=== PATIENT | female | born 1940 | race Hispanic/Latino ===

== ENCOUNTER 2017-11-02 16:43 | Emergency (ER) | payer MEDICARE, OTHER ==
[2017-11-02 16:49] VITALS: BMI 24.3
[2017-11-02 16:59] VITALS: O2SAT 99
[2017-11-02] MEDS ORDERED: Pantoprazole 40 MG in Sodium Chloride 0.9% 100 ML IV STA (17:03)
[2017-11-02] MEDS ORDERED: Sodium Chloride 0.9% 1,000 ML IV STA (17:04)
--- NOTE | 2017-11-02 17:07 | ED PDOC ---
Arrival/HPI - General Chief Complaint: GI Problem Time Seen by Provider: 11/02/17 16:52 - History of Present Illness Narrative History of Present Illness (Text): 11/02/17 17:04 76 year old female, whose history includes hernia surgery long ago, presents to the Emergency department complaining of diarrhea, abdominal pain, and weakness for 2 days. Patient denies any fever, chills, chest pain, shortness of breath, nausea, vomiting, urinary symptoms, back pain, neck pain, headache, dizziness, or any other complaints. Time/Duration: < week (2 days) Symptom Onset: Gradual Symptom Course: Unchanged Context: Home Past Medical History - Travel History Have you recently traveled outside [place] w/in the past 3 mons?: Yes - Infectious Disease Hx of Infectious Diseases: None - Psychiatric Hx Substance Use: No - Surgical History Hx Cholecystectomy: Yes - Anesthesia Hx Anesthesia: Yes Hx Anesthesia Reactions: No Hx Malignant Hyperthermia: No Family/Social History - Physician Review Nursing Documentation Reviewed: Yes Family/Social History: Unknown Family HX Smoking Status: Never Smoked Hx Alcohol Use: No Hx Substance Use: No Allergies/Home Meds Allergies/Adverse Reactions: Allergies No Known Allergies Allergy (Verified 11/02/17 16:49) Review of Systems - Physician Review All systems were reviewed & negative as marked: Yes - Review of Systems Constitutional: absent: Fevers, Night Sweats Respiratory: absent: SOB Cardiovascular: absent: Chest Pain Gastrointestinal: Abdominal Pain, Diarrhea. absent: Nausea, Vomiting Genitourinary Female: absent: Dysuria Musculoskeletal: absent: Back Pain, Neck Pain Neurological: Other (generalized weakness). absent: Headache, Dizziness Physical Exam Vital Signs Reviewed: Yes Vital Signs Temp Pulse Resp BP Pulse Ox 11/02/17 21:02 98.2 F 82 16 112/70 99 11/02/17 20:44 98.0 F 80 16 112/80 99 11/02/17 18:44 98.1 F 73 16 102/86 99 11/02/17 16:54 98.0 F 73 18 103/69 99 Temperature: Afebrile Blood Pressure: Normal Pulse: Regular Respiratory Rate: Normal Appearance: Positive for: Well-Appearing, Non-Toxic, Comfortable Pain Distress: None Mental Status: Positive for: Alert and Oriented X 3 - Systems Exam Head: Present: Atraumatic, Normocephalic Pupils: Present: PERRL Extroacular Muscles: Present: EOMI Conjunctiva: Present: Normal Mouth: Present: Moist Mucous Membranes Neck: Present: Normal Range of Motion Respiratory/Chest: Present: Clear to Auscultation, Good Air Exchange. No: Respiratory Distress, Accessory Muscle Use Cardiovascular: Present: Regular Rate and Rhythm, Normal S1, S2. No: Murmurs Abdomen: Present: Tenderness (epigastric). No: Rebound, Guarding Back: Present: Normal Inspection Upper Extremity: Present: Normal Inspection. No: Cyanosis, Edema Lower Extremity: Present: Normal Inspection. No: Edema Neurological: Present: GCS=15, CN II-XII Intact, Speech Normal Skin: Present: Warm, Dry, Normal Color. No: Rashes Psychiatric: Present: Alert, Oriented x 3, Normal Insight, Normal Concentration Medical Decision Making ED Course and Treatment: 11/02/17 17:08 Impression: 76 year old female presents to the Emergency department complaining of diarrhea , vomiting, and weakness. Plan: -- EKG -- Urinalysis -- Labs -- Protonix, Sodium Chloride IV fluids -- Reassess and disposition Progress Notes: 11/02/17 17:57 Patient reevaluated and reports pain has improved. 11/02/17 20:55 Advised the patient of all CT findings. Advised that the patient will need outpatient follow up. Patient has been consistently nontender in the Emergency department. 11/03/17 11:34 pain resolved.a bd soft. pt asking for dc. - Lab Interpretations Lab Results: 11/02/17 17:25 11/02/17 17:25 Lab Results 11/02/17 19:30: Urine Color Yellow, Urine Appearance Clear, Urine pH 6.0, Ur Specific [place] 1.010, Urine Protein Negative, Urine Glucose (UA) Negative, Urine Ketones Negative, Urine Blood Small H, Urine Nitrate Negative, Urine Bilirubin Negative, Urine Urobilinogen 0.2, Ur Leukocyte Esterase Small H, Urine RBC 0 - 2, Urine WBC 0 - 2, Ur Epithelial Cells 0 - 2, Urine Bacteria Small, Urine Other Mucus 11/02/17 17:25: Sodium 143, Potassium 3.9, Chloride 107, Carbon Dioxide 26, Anion Gap 14, BUN 11, Creatinine 0.6 L, Est GFR ( Amer) > 60, Est GFR ( Non-Af Amer) > 60, Random Glucose 88, Calcium 8.9, Total Bilirubin 0.4, AST 64 H , ALT 64 H, Alkaline Phosphatase 131 H, Lactate Dehydrogenase 539, Total Creatine Kinase 77, Troponin I < 0.01, Total Protein 7.3, Albumin 3.8, Globulin 3.6, Albumin/Globulin Ratio 1.1, Lipase 51 11/02/17 17:25: PT 11.4, INR 1.00, APTT 31.3 11/02/17 17:25: WBC 4.6, RBC 4.45, Hgb 13.1, Hct 39.2, MCV 88.1, MCH 29.4, MCHC 33.4, RDW 13.2, Plt Count 273, MPV 10.0, Gran % 40.3 L, Lymph % (Auto) 49.4 H, [place] % (Auto) 5.6, Eos % (Auto) 4.1, Baso % (Auto) 0.6, Gran # 1.87, Lymph # ( Auto) 2.3, [place] # (Auto) 0.3, Eos # (Auto) 0.2, Baso # (Auto) 0.03 - RAD Interpretation Narrative RAD Interpretations (Text): 11/02/2017 19:48 CT Abdomen and Pelvis With Intravenous Contrast FINDINGS: Lower thorax: No acute findings. ABDOMEN: Liver: The liver is heterogenous in appearance. Mild intrahepatic biliary ductal dilatation. Gallbladder and bile ducts: Status post cholecystectomy. The CBD is slightly dilated. Pancreas: Pancreas evaluation is limited. The pancreatic duct is slightly dilated, measuring 3-4 mm. Spleen: Unremarkable. No splenomegaly. Adrenals: Unremarkable. No mass. Kidneys and ureters: Cyst in the the left kidney. No hydronephrosis. Stomach and bowel: Bowel evaluation is limited due to lack of distention. There are high density foci within the colon probably related to ingested material. No mucosal thickening. Appendix: The appendix is not visualized. PELVIS: Bladder: Unremarkable. No mass. Reproductive: 3.6 cm complex density in the region of the right ovary. Ultrasound followup is advised on nonemergent basis. ABDOMEN and PELVIS: Intraperitoneal space: Unremarkable. No free air. No significant fluid collection. Bones/joints: Significant degenerative changes at L5 S1 level. Slight anterolisthesis of L4 on L5. No acute fracture. No dislocation. Soft tissues: Unremarkable. Vasculature: Unremarkable. No abdominal aortic aneurysm. Lymph nodes: Unremarkable. No enlarged lymph nodes. IMPRESSION: 3.6 cm complex density in the region of the right ovary. Question complex cyst. Ultrasound followup is recommended on nonemergent basis. Other findings as above. The pancreatic duct is slightly dilated, measuring 3-4 mm. Radiology Orders: 11/02/17 17:57 ABD & PELVIS IV CONTRAST ONLY [CT] Stat - EKG Interpretation EKG Interpretation (Text): 11/02/17 17:16 EKG: Ordered, reviewed, and independently interpreted the EKG. Rate : 68 BPM Rhythm : NSR Interpretation : No ST-T changes Interpreted by ED Physician: Yes Type: 12 lead EKG - Medication Orders Current Medication Orders: Discontinued Medications Pantoprazole Sodium 40 mg/ (Sodium Chloride) 100 mls @ 400 mls/hr IV STAT STA Stop: 11/02/17 17:17 Last Admin: 11/02/17 17:30 Dose: 400 mls/hr eMAR Start Stop Document 11/02/17 17:30 OCS (Rec: 11/02/17 17:32 OCS [id number]) Intravenous Solution Start Date 11/02/17 Start Time 17:30 End Date 11/02/17 End time 17:45 Total Infusion Time 15 Sodium Chloride (Sodium Chloride 0.9%) 1,000 mls @ 999 mls/hr IV .Q1H1M STA Stop: 11/02/17 18:04 Last Admin: 11/02/17 17:33 Dose: 999 mls/hr eMAR Start Stop Document 11/02/17 17:33 OCS (Rec: 11/02/17 17:34 OCS [id number]) Intravenous Solution Start Date 11/02/17 Start Time 17:34 End Date 11/02/17 End time 18:35 Total Infusion Time 61 - Scribe Statement The provider has reviewed the documentation as recorded by the Nik Leggett Provider Scribe Attestation: All medical record entries made by the Brunoibumberto were at my direction and personally dictated by me. I have reviewed the chart and agree that the record accurately reflects my personal performance of the history, physical exam, medical decision making, and the department course for this patient. I have also personally directed, reviewed, and agree with the discharge instructions and disposition. Disposition/Present on Arrival - Present on Arrival Any Indicators Present on Arrival: No History of DVT/PE: No History of Uncontrolled Diabetes: No Urinary Catheter: No History of Decub. Ulcer: No History Surgical Site Infection Following: None - Disposition Have Diagnosis and Disposition been Completed?: Yes Diagnosis: Abdominal pain Disposition: HOME/ ROUTINE Disposition Time: 20:49 Condition: STABLE Discharge Instructions (ExitCare): Acute Abdomen (Belly Pain), Adult (DC) Additional Instructions: please follow up with specialist. please discuss your lab results with your pmd/ specialist. you may require further evaluation and testing. return to er with worsening symptoms or concerns. Prescriptions: Famotidine [Pepcid] 20 mg PO DAILY #20 tab Referrals: [facility], [Non-Staff] - Follow up with primary [facility] [place] - Follow up with primary [facility] [Outside] - Follow up with primary [facility] [Outside] - Follow up with primary Aurea Torres MD [Medical Doctor] - Follow up with primary Forms: [employer] (Pashto)
[2017-11-02 17:54] LABS: BASO # 0.03 K/mm3 (0.0-2.0); BASO % 0.6 % (0.0-3.0); EOS # 0.2 (0.0-0.7); EOS % 4.1 % (1.5-5.0); GRAN # 1.87 (1.4-6.5); GRAN % 40.3 % (50.0-68.0); HEMOGLOBIN 13.1 g/dL (12.0-16.0); LYMPH # 2.3 (1.2-3.4); LYMPH % 49.4 % (22.0-35.0); MEAN CELL VOLUME 88.1 fl (80.0-105.0); MEAN CORPUSCULAR HEMOGLOBIN 29.4 pg (25.0-35.0); MEAN CORPUSCULAR HGB CONC 33.4 g/dl (31.0-37.0); MONO # 0.3 (0.1-0.6); MONO % 5.6 % (1.0-6.0); RBC 4.45 10^6/uL (3.5-6.1); RED CELL DISTRIBUTION WIDTH 13.2 % (11.5-14.5); WHITE BLOOD COUNT 4.6 10^3/ul (4.5-11.0)
[2017-11-02 17:55] LABS: ALB/GLOB RATIO 1.1 (1.1-1.8); ALBUMIN 3.8 g/dL (3.0-4.8); ALT/SGPT 64 U/L (7-56); AST/SGOT 64 U/L (14-36); BLOOD UREA NITROGEN 11 mg/dL (7-21); CALCIUM 8.9 mg/dL (8.4-10.5); GFR AFRICAN-AMERICAN > 60; GFR NON-AFRICAN AMERICAN > 60; LIPASE 51 U/L (23-300)
[2017-11-02 17:59] LABS: PARTIAL THROMBOPLASTIN TIME 31.3 Seconds (25.1-36.5); PROTHROMBIN TIME 11.4 SECONDS (9.4-12.5)
[2017-11-02 18:07] LABS: TROPONIN I < 0.01 ng/mL
[2017-11-02] MEDS ORDERED: Iohexol 350 MG/100 ML VIAL ONE (18:12)
[2017-11-02 19:57] LABS: URINE BILIRUBIN NEGATIVE (NEGATIVE); URINE BLOOD SMALL (NEGATIVE); URINE GLUCOSE (UA) NEGATIVE (NEGATIVE); URINE LEUKOCYTE ESTERASE SMALL Leu/uL (NEGATIVE); URINE NITRATE NEGATIVE (NEGATIVE); URINE PROTEIN NEGATIVE mg/dL (<30 mg/dL); URINE UROBILINOGEN 0.2 E.U./dL (<1 E.U./dL)
[2017-11-02 20:02] LABS: URINE APPEARANCE CLEAR (CLEAR); URINE COLOR YELLOW (YELLOW)
[2017-11-02 20:44] LABS: URINE BACTERIA SMALL (NEG); URINE EPITHELIAL CELLS 0 - 2 /hpf (0-5); URINE RBC 0 - 2 /hpf (0-2); URINE WBC 0 - 2 /hpf (0-6)
[2017-11-02 21:01] VITALS: RESP 16
[2017-11-02 21:04] VITALS: BP 112/70; PULSE 82; TEMP 98.2
--- NOTE | 2017-11-03 07:48 | CT ---
PROCEDURE: CT Abdomen and Pelvis with contrast HISTORY: upper abd pain COMPARISON: None. TECHNIQUE: Contrast dose: 100 mL Omnipaque 350. Axial and reformatted coronal and sagittal CT images of the abdomen and pelvis were obtained after IV contrast administration. Radiation dose: Total exam DLP = 347.34 mGy-cm. This CT exam was performed using one or more of the following dose reduction techniques: Automated exposure control, adjustment of the mA and/or kV according to patient size, and/or use of iterative reconstruction technique. FINDINGS: LOWER THORAX: No evidence of acute pathology at the lung bases. LIVER: Mild hepatomegaly is noted without evidence of discrete mass. The portal vein is patent. GALLBLADDER AND BILE DUCTS: Status post cholecystectomy. Mildly dilated common bile duct likely due to prior cholecystectomy. PANCREAS: Unremarkable. No gross lesion or ductal dilatation. SPLEEN: Unremarkable. ADRENALS: Unremarkable. No mass. KIDNEYS AND URETERS: Unremarkable. No hydronephrosis. No solid mass. There is low-attenuation cyst exophytic from the upper pole of the left kidney measures 4 x 4.3 centimeter. VASCULATURE: Unremarkable. No aortic aneurysm. BOWEL: Punctate high attenuation noted in the large bowel likely represent residual contrast from prior study. Few scattered colonic diverticulosis are noted without evidence of diverticulitis. There is either focal dietitian of the descending portion of the duodenum versus large duodenal diverticulum measures approximately 3.6 centimeter APPENDIX: The appendix is not visualized. No evidence of acute appendicitis. PERITONEUM: Unremarkable. No free fluid. No free air. LYMPH NODES: Unremarkable. No enlarged lymph nodes. BLADDER: Unremarkable. REPRODUCTIVE: There is 2.7 x 2.4 centimeters cyst at the right pelvis likely represent right adnexal cyst. The uterus and the left adnexa are grossly unremarkable. BONES: No acute fracture. Degenerative changes noted at the lower spine associated with grade 1 anterior spondylolisthesis of L4 relative to L5 and severe narrowing of the L5-S1 disc space. OTHER FINDINGS: None. IMPRESSION: Suspicious for 3.6 centimeter descending duodenal diverticulum. Status post cholecystectomy. No evidence of pancreatitis. 4.3 centimeter cyst exophytic from the upper pole of the left kidney. Suspicious for 2.7 centimeters cyst at the right adnexa. Further assessment by ultrasound of the pelvis is suggested.
--- NOTE | 2017-11-03 21:37 | CARD ---
APPROVED REPORT EKG Measurement Heart [id number] <Conclusion> Normal sinus rhythm Normal ECG
== END 2017-11-02 21:02 | disposition home or self-care (01) ==
LOC: ED 16:43
DX: R10.9 Unspecified abdominal pain (principal); Z90.49 Acquired absence of other specified parts of digestive tract
CPT/HCPCS: 74177; 80053; 81001; 82550; 83615; 83690; 84484; 85025; 85610; 85730; 87086; 93005; 96360; 99285; C9113; J7040; Q9967

== ENCOUNTER 2018-06-08 00:32 | Emergency (ER) | payer OTHER ==
[2018-06-08 00:33] VITALS: BMI 24.3
[2018-06-08 00:45] VITALS: TEMP 98.6
--- NOTE | 2018-06-08 02:22 | ED PDOC ---
Arrival/HPI - General Chief Complaint: Chest Pain Time Seen by Provider: 06/08/18 02:21 Historian: Patient - History of Present Illness Narrative History of Present Illness (Text): 06/08/18 02:21 77 year old female, with no significant past medical history, presents to the emergency department complaining cough that began today. Patient reports she had a sore throat that began 3 days ago, but has resolved and is now complaining of cough. Patient took Tylenol with some relief. Patient denies any fever, chills, chest pain, shortness of breath, nausea, vomiting, diarrhea, urinary symptoms, back pain, neck pain, headache, dizziness, or any other complaints. Time/Duration: Other (3 days) Symptom Onset: Gradual Activities at Onset: Light Context: Home Past Medical History - Provider Review Nursing Documentation Reviewed: Yes - Infectious Disease Hx of Infectious Diseases: None - Psychiatric Hx Substance Use: No - Surgical History Hx Cholecystectomy: Yes - Anesthesia Hx Anesthesia: Yes Hx Anesthesia Reactions: No Hx Malignant Hyperthermia: No Family/Social History - Physician Review Nursing Documentation Reviewed: Yes Family/Social History: No Known Family HX Smoking Status: Never Smoked Hx Alcohol Use: No Hx Substance Use: No Allergies/Home Meds Allergies/Adverse Reactions: Allergies No Known Allergies Allergy (Verified 11/02/17 16:49) Home Medications: Home Meds Medication Instructions Recorded Confirmed Multivitamin [Multivitamins] 1 each PO DAILY 06/08/18 06/08/18 Review of Systems - Physician Review All systems were reviewed & negative as marked: Yes - Review of Systems Constitutional: absent: Fevers, Other (Chills) ENT: Sore Throat Respiratory: Cough. absent: SOB Cardiovascular: absent: Chest Pain Gastrointestinal: absent: Diarrhea, Vomiting Genitourinary Female: absent: Dysuria, Frequency, Hematuria Musculoskeletal: absent: Back Pain, Neck Pain Neurological: absent: Headache, Dizziness Physical Exam - Physical Exam Narrative Physical Exam (Text): Gen: VS reviewed, alert, well developed, well nourished, nontoxic, mild distress. ENT: normal pharynx. Eye: EOMI, PERRL. Neck: no JVD, supple, no adenopathy. CV: regular rate, regular rhythm, no rubs, no murmur, no gallops, S1, S2, pulses equal and strong. Pulm: no distress, clear to auscultation, no wheeze, no rhonchi, breath sounds equal, no rales. Abd: soft, nontender, no guarding, no rebound, no rigidity, normal bowel sounds. Ext: no edema. Skin: good color, no rash, no cyanosis. Psych: responds appropriately to questions, normal affect. Neuro: oriented x 3, CN2-12 intact grossly, motor intact, sensation intact. Vital Signs Reviewed: Yes Vital Signs Temp Pulse Resp BP Pulse Ox 06/08/18 00:42 98.6 F 84 17 155/83 H 97 Temperature: Afebrile Blood Pressure: Hypertensive Pulse: Regular Respiratory Rate: Normal Medical Decision Making ED Course and Treatment: 06/08/18 02:21 Impression: 77 year old female presents complaining of sore throat and cough. Plan: -- Chest X-ray -- Reassess and disposition Progress Notes: 06/08/18 03:50 patient was seen for sore throat, runny nose, postnasal drip and dry cough. patient is nontoxic, appears stable for dc. will empirically tx with po abx though i still believe this is likely a viral upper respiratory illness. patient remained stable throughout ED course. All discussion with patient through montenegrin language line [id number] 06/08/18 03:54 - RAD Interpretation Last Greaser: ED Physician - Scribe Statement The provider has reviewed the documentation as recorded by the Brunoibumberto Chapa Provider Scribe Attestation: All medical record entries made by the Scribe were at my direction and personally dictated by me. I have reviewed the chart and agree that the record accurately reflects my personal performance of the history, physical exam, medical decision making, and the department course for this patient. I have also personally directed, reviewed, and agree with the discharge instructions and disposition. Disposition/Present on Arrival - Present on Arrival Any Indicators Present on Arrival: No History of DVT/PE: No History of Uncontrolled Diabetes: No Urinary Catheter: No History of Decub. Ulcer: No History Surgical Site Infection Following: None - Disposition Have Diagnosis and Disposition been Completed?: Yes Diagnosis: Upper respiratory infection Disposition: HOME/ ROUTINE Disposition Time: 03:54 Patient Plan: Discharge Patient Problems: Current Active Problems Problem Status Onset Upper respiratory infection Acute Condition: STABLE Discharge Instructions (ExitCare): Viral Upper Respiratory Infection, Adult (DC) Print Language: GEORGIAN Additional Instructions: NIK CAMANO, thank you for letting us take care of you today. Your provider was Dr. Remberto Castrejon and you were treated for upper respiratory infection. The emergency medical care you received today was directed at your acute symptoms. If you were prescribed any medication, please fill it and take as directed. It may take several days for your symptoms to resolve. Return to the Emergency Department if your symptoms worsen, do not improve, or if you have any other problems. Please contact your doctor or call one of the physicians/clinics you have been referred to that are listed on the Patient Visit Information form that is included in your discharge packet. Bring any paperwork you were given at discharge with you along with any medications you are taking to your follow up visit. Our treatment cannot replace ongoing medical care by a primary care provider outside of the emergency department. Thank you for allowing the [facility] team to be part of your care today. If you had an X-Ray or CT scan: A Radiologist will review the ED reading if any change in treatment is needed we will contact you. If you had a blood, urine, or wound culture: It will take several days for the results, if any change in treatment is needed we will contact you. If you had an STI test: It will take 48 hours for the results. Please call after 1 week if you have not heard back. Prescriptions: Azithromycin 250 mg PO DAILY 4 Days #4 tablet Referrals: [facility] [Outside] - Follow up with primary Abby Arriaga MD [Medical Doctor] - Follow up with primary Forms: [employer] (Azeri)
[2018-06-08 04:14] VITALS: BP 145/82; PULSE 81; RESP 22; O2SAT 100
--- NOTE | 2018-06-08 09:08 | RAD ---
Date of service: 06/08/2018 HISTORY: cough, pneumonia COMPARISON: No prior. TECHNIQUE: Chest PA and lateral FINDINGS: LUNGS: No active pulmonary disease. PLEURA: No significant pleural effusion identified. No pneumothorax apparent. CARDIOVASCULAR: Normal. OSSEOUS STRUCTURES: No significant abnormalities. VISUALIZED UPPER ABDOMEN: Normal. OTHER FINDINGS: None. IMPRESSION: No active disease.
--- NOTE | 2018-06-08 11:09 | CARD ---
APPROVED REPORT Date of service: 06/08/2018 EKG Measurement Heart [id number] <Conclusion> Normal sinus rhythm Normal ECG
== END 2018-06-08 04:13 | disposition home or self-care (01) ==
LOC: ED 00:32
DX: J06.9 Acute upper respiratory infection, unspecified (principal)

== ENCOUNTER 2018-11-06 15:58 | Emergency (ER) | payer MEDICAID, OTHER ==
[2018-11-06 15:59] VITALS: BMI 24.3
[2018-11-06 16:08] VITALS: RESP 18
[2018-11-06] MEDS ORDERED: Sodium Chloride 0.9% 1,000 ML IV STA (16:22)
--- NOTE | 2018-11-06 16:22 | ED PDOC ---
Arrival/HPI - General Chief Complaint: Cough, Cold, Congestion Historian: Patient, Family - History of Present Illness Narrative History of Present Illness (Text): 11/06/18 16:11 77 y/o female, no significant pmh, nkda, c/o cough/fatigue/fever x 2 days with no recent traveling. Pt. has been having coughing, admits fatigue, associated with the fever, no night sweat, no rash, no numbness or tingling, no abdominal or pelvic pain, no neck stiffness, no other medical or psychological complaints. Past Medical History - Provider Review Nursing Documentation Reviewed: Yes - Infectious Disease Hx of Infectious Diseases: None - Reproductive Menopause: Yes - Cardiac Hx Cardiac Disorders: No - Psychiatric Hx Substance Use: No - Surgical History Hx Cholecystectomy: Yes - Anesthesia Hx Anesthesia: Yes Hx Anesthesia Reactions: No Hx Malignant Hyperthermia: No Family/Social History - Physician Review Nursing Documentation Reviewed: Yes Family/Social History: Unknown Family HX Smoking Status: Never Smoked Hx Alcohol Use: No Hx Substance Use: No Allergies/Home Meds Allergies/Adverse Reactions: Allergies No Known Allergies Allergy (Verified 11/02/17 16:49) Home Medications: Home Meds Medication Instructions Recorded Confirmed Multivitamin [Multivitamins] 1 each PO DAILY 06/08/18 06/08/18 Review of Systems - Review of Systems Constitutional: Fatigue, Fevers Eyes: absent: Vision Changes ENT: Rhinorrhea. absent: Hearing Changes Respiratory: Cough, Sputum. absent: SOB, Wheezing Cardiovascular: absent: Chest Pain Gastrointestinal: absent: Abdominal Pain, Diarrhea, Nausea, Vomiting Musculoskeletal: absent: Arthralgias, Back Pain Skin: absent: Rash, Pruritis Neurological: absent: Headache, Dizziness Psychiatric: absent: Anxiety, Depression, Suicidal Ideation Physical Exam Vital Signs Reviewed: Yes Vital Signs Temp Pulse Resp BP Pulse Ox 11/06/18 16:07 100.7 F H 99 H 18 145/78 97 Temperature: Febrile Blood Pressure: Normal Pulse: Regular Respiratory Rate: Normal Appearance: Positive for: Well-Appearing, Non-Toxic, Comfortable Pain Distress: None Mental Status: Positive for: Alert and Oriented X 3 - Systems Exam Head: Present: Atraumatic, Normocephalic Pupils: Present: PERRL Extroacular Muscles: Present: EOMI Conjunctiva: Present: Normal Ears: Present: NORMAL TM, Normal Canal. No: Erythema Mouth: Present: Moist Mucous Membranes Pharnyx: No: ERYTHEMA, EXUDATE, TONSILS ENLARGED Nose (External): Present: Atraumatic. No: Abrasion, Contusion, Laceration Nose (Internal): Present: Normal Inspection, No Active Bleeding, Rhinorrhea. No: Septal Hematoma, Epistaxis Neck: Present: Normal Range of Motion, Trachea Midline. No: Meningeal Signs, MIDLINE TENDERNESS, Paraspinal Tenderness, Lymphadenopathy Respiratory/Chest: Present: Clear to Auscultation, Good Air Exchange, Rhonchi. No: Respiratory Distress, Accessory Muscle Use, Wheezes, Decreased Breath Sounds, Rales, Retracting, Tachypneic, Tender to Palpation Cardiovascular: Present: Regular Rate and Rhythm, Normal S1, S2. No: Murmurs Abdomen: No: Tenderness, Distention, Peritoneal Signs, Rebound, Guarding Back: Present: Normal Inspection. No: CVA Tenderness Upper Extremity: Present: Normal Inspection. No: Cyanosis, Edema Lower Extremity: Present: Normal Inspection. No: Edema Neurological: Present: GCS=15, CN II-XII Intact, Speech Normal Skin: Present: Warm, Dry, Normal Color. No: Rashes Psychiatric: Present: Alert, Oriented x 3, Normal Insight, Normal Concentration Medical Decision Making ED Course and Treatment: 11/06/18 16:25 -labs -chest xray -IVF/tylenol -Observe and reassess 11/06/18 18:37 -EKG: Sinus Tachycardia @ 101 BPM, no ST elevation or depression, no T wave inversion. -Rapid flu is negative, peak flu season, moderate to high suspicious for flu, tamiflu ordered -Chest xray No focal consolidation. -Labs show no acute findings -Pt. feels better, fever resolved, vitally stable, all labs and radiology results discussed, refused UA testing and would like to go home. Pt. has no urinary symptoms. -Azithromycin and tamiflu ordered. -Discharge home with tamiflu, azithromycin, bromfed dm, prednisone, tylenol, bed rest, stay hydrated, follow up with your own pmd within 2 days, return to the ER for any new or worsening signs or symptoms. - RAD Interpretation Radiology Orders: HISTORY: cough/fever COMPARISON: Chest x-ray performed 06/08/18 TECHNIQUE: Chest PA and lateral FINDINGS: LUNGS: No focal consolidation. Please note that chest x-ray has limited sensitivity for the detection of pulmonary masses. PLEURA: No significant pleural effusion identified. No definite pneumothorax . CARDIOVASCULAR: Heart size appears within normal limits. Atherosclerotic calcifications of the aorta. OSSEOUS STRUCTURES: Degenerative changes. VISUALIZED UPPER ABDOMEN: Unremarkable. OTHER FINDINGS: None. IMPRESSION: No focal consolidation. Corporate Director: Radiologist - EKG Interpretation EKG Interpretation (Text): 11/06/18 16:26 -EKG: Sinus Tachycardia @ 101 BPM, no ST elevation or depression, no T wave inversion. Interpreted by ED Physician: Yes Type: 12 lead EKG - PA / HUMAN RESOURCE MANAGEMENT INSTRUCTOR / Resident Statement MD/DO has reviewed & agrees with the documentation as recorded. Disposition/Present on Arrival - Present on Arrival Any Indicators Present on Arrival: No History of DVT/PE: No History of Uncontrolled Diabetes: No Urinary Catheter: No History of Decub. Ulcer: No History Surgical Site Infection Following: None - Disposition Have Diagnosis and Disposition been Completed?: Yes Diagnosis: Flu-like symptoms, URI (upper respiratory infection) Disposition: HOME/ ROUTINE Disposition Time: 18:39 Patient Plan: Discharge Condition: IMPROVED Additional Instructions: Discharge home with tamiflu, azithromycin, bromfed dm, prednisone, tylenol, bed rest, stay hydrated, follow up with your own pmd and specialist within 2 days, return to the ER for any new or worsening signs or symptoms. Prescriptions: Acetaminophen [Pain Reliever] 500 mg PO QID #25 tablet Azithromycin 250 mg PO DAILY #4 tablet Brompheniramine/Pseudoephed/Dm [Bromfed Dm Cough 118 ml] 10 ml PO TID PRN #210 ml PRN Reason: Other Oseltamivir Cap [Tamiflu] 75 mg PO BID #10 cap Referrals: [facility] at [facility] [place] [Outside] - Follow up with primary Diana Liu MD [Staff Provider] - Follow up with primary Forms: [employer] ([place]ian), WORK NOTE
[2018-11-06 16:51] LABS: BASO # 0.04 {null, K/mm3} (0.0-2.0); BASO % 0.5 % (0.0-3.0); EOS # 0.3 (0.0-0.7); EOS % 3.9 % (1.5-5.0); HEMOGLOBIN 13.3 g/dL (12.0-16.0); LYMPH # 1.5 (1.2-3.4); LYMPH % 17.1 % (22.0-35.0); MEAN CELL VOLUME 86.9 fl (80.0-105.0); MEAN CORPUSCULAR HEMOGLOBIN 28.6 pg (25.0-35.0); MEAN CORPUSCULAR HGB CONC 32.9 g/dl (31.0-37.0); MEAN PLATELET VOLUME 9.8 fl (7.0-11.0); MONO # 0.5 (0.1-0.6); MONO % 5.9 % (1.0-6.0); RBC 4.65 {null, 10^6/uL} (3.5-6.1); RED CELL DISTRIBUTION WIDTH 13.3 % (11.5-14.5); WHITE BLOOD COUNT 8.5 {null, 10^3/uL} (4.5-11.0)
[2018-11-06 16:58] LABS: ALB/GLOB RATIO 1.1 (1.1-1.8); ALBUMIN 4.1 g/dL (3.0-4.8); ALT/SGPT 8 U/L (7-56); AST/SGOT 30 U/L (14-36); BLOOD UREA NITROGEN 13 mg/dL (7-21); CALCIUM 9.2 mg/dL (8.4-10.5); GFR NON-AFRICAN AMERICAN > 60
--- NOTE | 2018-11-06 17:41 | RAD ---
HISTORY: cough/fever COMPARISON: Chest x-ray performed 06/08/18 TECHNIQUE: Chest PA and lateral FINDINGS: LUNGS: No focal consolidation. Please note that chest x-ray has limited sensitivity for the detection of pulmonary masses. PLEURA: No significant pleural effusion identified. No definite pneumothorax . CARDIOVASCULAR: Heart size appears within normal limits. Atherosclerotic calcifications of the aorta. OSSEOUS STRUCTURES: Degenerative changes. VISUALIZED UPPER ABDOMEN: Unremarkable. OTHER FINDINGS: None. IMPRESSION: No focal consolidation.
[2018-11-06 18:06] VITALS: BP 121/60; PULSE 88; TEMP 99; O2SAT 98
--- NOTE | 2018-11-08 07:51 | CARD ---
APPROVED REPORT Date of service: 11/06/2018 EKG Measurement Heart [id number] <Conclusion> Sinus tachycardia Possible Left atrial enlargement Borderline ECG
== END 2018-11-06 18:52 | disposition home or self-care (01) ==
LOC: ED 15:58
DX: J11.1 Influenza due to unidentified influenza virus with other respiratory manifestations (principal)
CPT/HCPCS: 71046; 80053; 85025; 87804; 93005; 96360; 99283; J7030